=== PATIENT | male | born 1980 | race American Indian/Alaskan Native ===

== ENCOUNTER 2017-08-19 05:54 | Observation (INO) | payer OTHER ==
[2017-08-19 06:11] VITALS: BMI 33.0
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
[2017-08-19 07:14] LABS: BASO % 0.8 % (0.0-2.0); EOS # 0.1 K/uL (0.0-0.7); EOS % 2.7 % (0.0-4.0); HEMOGLOBIN 14.1 g/dL (12.0-18.0); LYMPH # 1.3 K/uL (1.0-4.3); MEAN CELL VOLUME 87.4 fl (80.0-94.0); MEAN CORPUSCULAR HEMOGLOBIN 29.7 pg (27.0-31.0); MEAN PLATELET VOLUME 8.5 fl (7.2-11.7); MONO # 0.7 K/uL (0.0-0.8); MONO % 14.1 % (0.0-10.0); NEUT # 2.8 K/uL (1.8-7.0); NEUT % 56.4 % (50.0-75.0); NRBC % 0.1 % (0.0-0.0); RBC 4.74 Mil/uL (4.40-5.90); RED CELL DISTRIBUTION WIDTH 13.4 % (11.5-14.5)
[2017-08-19 07:22] LABS: INR 1.1 (0.9-1.2); PARTIAL THROMBOPLASTIN TIME 32.5 Seconds (25.6-37.1); PROTHROMBIN TIME 12.4 Seconds (9.8-13.1)
[2017-08-19 07:25] LABS: ALB/GLOB RATIO 1.4 (1.0-2.1); ALBUMIN 4.6 g/dL (3.5-5.0); ALT/SGPT 43 U/L (21-72); AST/SGOT 32 U/L (17-59); BLOOD UREA NITROGEN 14 mg/dl (9-20); CALCIUM 9.1 mg/dL (8.4-10.2); GFR AFRICAN-AMERICAN > 60; GFR NON-AFRICAN AMERICAN > 60
[2017-08-19] MEDS ORDERED: Propofol 10 mg/ml Inj (20 ML) ONE ×2 (08:00→08:04)
[2017-08-19] MEDS ORDERED: Midazolam 2 MG/2 ML VIAL ONE (08:00)
[2017-08-19] MEDS ORDERED: Bupivacaine 0.5% Inj(30mL) ONE ×2 (08:05→09:49)
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
[2017-08-19 08:17] VITALS: RESP 18
[2017-08-19] MEDS ORDERED: Lactated Ringer's 1,000 ML IV ONE (08:47)
[2017-08-19] MEDS ORDERED: Dexamethasone 4 mg/1 ml ONE (09:26)
[2017-08-19] MEDS ORDERED: ePHEDrine 50 mg/ml Inj ONE (09:31)
[2017-08-19] MEDS ORDERED: Bupivacaine 0.5% 50 ML IJ ONE (09:50)
[2017-08-19] MEDS ORDERED: Ropivacaine 0.5% 30ML IV ONE (09:51)
--- NOTE | 2017-08-19 10:05 | PCM.SURG1 ---
Surgeon's Initial Post Op Note - Surgeon's Notes Surgeon: Dr. Scherer [employer]ade Games Mechanic: Dr. Leija PGY-2 Type of Anesthesia: IV Sedation, Local Anesthesia Administered By: Dr. Kim Pre-Operative Diagnosis: right arm biceps tendon rupture Operative Findings: see dictation Post-Operative Diagnosis: same Operation Performed: right arm biceps tendon repair Specimen/Specimens Removed: none Estimated Blood Loss: EBL {In ML}: 10 Blood Products Given: N/A Drains Used: No Drains Post-Op Condition: Good Date of Surgery/Procedure: 08/19/17 Time of Surgery/Procedure: 10:05
[2017-08-19] MEDS ORDERED: HYDROmorphone 0.5 mg/0.5 ml ISec IVP PRN (10:26)
--- NOTE | 2017-08-19 10:26 | PCM.ANESB1 ---
Interscalene Block - Brachial Plexus Date of Procedure: 08/19/17 Anesthesiologist: Julio Pre-Procedure Diagnosis: Right torn biceps Post-Procedure Diagnosis: Same Procedure Performed: Interscalene Block of Brachial Plexus Right - Procedure Interscalene Block of Brachial Plexus: This procedure was explained to the patient that it is for post-operative pain management. Consent was obtained after a thorough discussion with the patient regarding the benefits and possible complications of local anesthetic block of the Brachial Plexus at the Interscalene area. At the end of the surgery, patient was extubated. Time out was held with the circulating nurse to confirm the correct surgery and appropriate block. After applying Oxygen by nasal cannula and administering IV Sedation, the patient's head was gently rotated away from the __right____operative shoulder and the anterior scalene groove was carefully palpated. The ultrasound transducer was then applied to the skin in the transverse plane and the brachial plexus was visualized lateral to the carotid artery and in between the anterior and middle scalene muscles. After identification,the anterior lateral portion of the neck was prepped with Betadine solution three times and Lidocaine 1% was injected subcutaneously for topical analgesia. At this point, a # 22 gauge Stimuplex 2 inches insulated needle was inserted into the interscalene groove and directed in a caudal and midline direction. The needle was inserted lateral to the ultrasound transducer in-plane towards the brachial plexus in a [id number] direction. Needle advancement was performed carefully under direct ultrasound visualization. Nerve stimulator was used and twitched of the affected extremity including the hand brachialis muscles, biceps and the deltoid was obtained at a current of __0.4___MA. After repeated negative aspiration,__30___cc of__.5%___,____Ropivacaine were injected. Under ultrasound guidance the local anesthetics were observed surrounding the roots of the brachial plexus. The needle was removed intact and sterile dressing was applied. The patient had stable vital signs, was conscious and in no apparent distress. The patient tolerated the interscalene block of the bracheal plexus well with stable vital signs and was transfered to PACU.
--- NOTE | 2017-08-19 11:52 | RAD ---
HISTORY: Preop. COMPARISON: No prior. FINDINGS: LUNGS: No active pulmonary disease. PLEURA: No significant pleural effusion identified, no pneumothorax apparent. CARDIOVASCULAR: No radiographic findings to suggest acute or significant cardiovascular disease. OSSEOUS STRUCTURES: No significant abnormalities. VISUALIZED UPPER ABDOMEN: Normal. OTHER FINDINGS: None. IMPRESSION: No active disease.
[2017-08-19 13:24] VITALS: O2SAT 97
[2017-08-19 14:04] VITALS: BP 142/78; PULSE 88; TEMP 97.8
--- NOTE | 2017-08-19 17:07 | CARD ---
APPROVED REPORT EKG Measurement Heart [id number] MT [id number] <Conclusion> Normal sinus rhythm Left ventricular hypertrophy with repolarization abnormality Abnormal ECG
--- NOTE | 2017-08-19 17:11 | CARD ---
APPROVED REPORT EKG Measurement Heart [id number] NM [id number] <Conclusion> Normal sinus rhythm ST & T wave abnormality, consider inferolateral ischemia Prolonged QT Abnormal ECG
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
--- NOTE | 2017-08-20 08:34 | OP ---
PROCEDURE DATE: 08/19/2017 SURGEON: Daniel Scherer MD [employer]: Tammy Mueller MD PREOPERATIVE DIAGNOSIS: Displaced right distal biceps tear. POSTOPERATIVE DIAGNOSIS: Displaced right distal biceps tear. PROCEDURES: 1. Right distal biceps tendon reinsertion using Arthrex tension slide Button technique, [id number]. 2. Right elbow long arm cast, [id number]. ESTIMATED BLOOD LOSS: Minimal. TYPE OF ANESTHESIA: General and postoperative right upper extremity block. SPECIMENS: None. COMPLICATIONS: None. OPERATIVE FINDINGS: A full-thickness distal biceps tear with retraction which was amenable to anatomic repair. INDICATION: A 36-year-old right-hand dominant male, who presents to [facility] complaining of right arm pain and weakness. After being evaluated in the Emergency Room, the patient was taken to the operating room for elbow exploration and repair of the biceps tendon. Risks and benefits of the surgery were explained. Informed consent was obtained. DESCRIPTION OF PROCEDURE: The patient was taken to the operating room and placed supine on the operating room table. After adequate general anesthesia was provided, a well-padded non-sterile tourniquet was placed on the patient's right upper extremity. Right upper extremity was then prepped and draped in standard surgical fashion. The proposed incision was marked out with a sterile marking pen. This was a horizontal incision over the radial tuberosity on the anterior forearm. Incision was approximately 5 cm in length. Esmarch bandage was used to exsanguinate the ligament. The tourniquet was inflated to 250 mmHg and the Esmarch bandage was removed. An incision was made and also superficial veins were cauterized immediately, isolation, identification and protection of the lateral antebrachial cutaneous nerve was performed. Gentle dissection was carried proximally to identify the distal biceps tendon, which was retracted into the upper arm. A clamp was placed at the bulbous distal end and it was brought out through the wound. The muscle belly was freed of its superficial and deep surface as well as medial and lateral surface to improve its excursion. The tendon was prepared. The tendon was debrided by using #10 scalpel. It was until healthy tendon was seen, #2 FiberWire loop was used to place a whip stitch along the distal 2.5 cm of the tendon. A marking pen marked the distal 1 cm of the tendon. The tendon was measured and 8 mm size . Next, attention was turned towards identifying the radial tuberosity. The arm was kept fully supinated and dissection was carried down to the radial tuberosity. The radial recurrent vessels were ligated. Both small tendon fibers were then seen at the radial tuberosity. Care was taken to protect the radial nerve at all times. Next, biceps button 3.2 mm passing pin was placed bicortically on the ulnar aspect of the radial tuberosity. The medial cortex was . All bone debris was immediately removed and suctioned and irrigated. Next, the threads of the FiberLoop were grasped with biceps button and it was placed and the button inserted. While holding the arm fully supinated, the button was placed through the radius and deployed. Using tension slide technique, the tendon was into the trough. The tendon was inserted greater than 1 cm into the tuberosity, and then using a free needle, one suture was passed through the distal tendon. It was then secured through the remaining suture. Radiographs confirmed excellent placement of the button and drill holes. Next, repair was then seen and obtained with minimal tension with the arm in 45 to 60 degrees. There was tension with extension to 30 degrees. The tourniquet was deflated. Hemostasis was obtained using bipolar cautery. The skin was closed with interrupted 2-0 Vicryl followed by 3-0 Monocryl subcuticular stitch. Steri-Strips were placed followed by fluffs and 4 x 4s. The long-arm plaster cast was then placed within the elbow at 45 degrees flexion and neutral rotation. The patient tolerated the procedure well and was brought to recovery room awake, alert and in excellent condition. Dr. Tammy Mueller is a board certified Orthopedic surgeon who assisted me throughout the case. His assistance was needed for proper patient position and protecting vertical neurovascular bundle and final implant placement. His fleet assistant provided intraoperative safety for the patient. Daniel Scherer MD
== END 2017-08-19 14:00 | disposition home or self-care (01) ==
LOC: H.ER 05:54 → H.ERHOLD 07:38
PROVIDERS: ADMIT Internal Medicine; ATTEND Internal Medicine
DX: S46.211A Strain of muscle, fascia and tendon of other parts of biceps, right arm, initial encounter (principal); I10 Essential (primary) hypertension; Y04.2XXA Assault by strike against or bumped into by another person, initial encounter; Y93.9 Activity, unspecified; Y92.9 Unspecified place or not applicable
CPT/HCPCS: 24342; 71045; 80053; 82948; 85025; 85610; 85730; 93005; 99283; G0378; J0690; J1100; J2001; J2250; J2704; J3010; J7030; J7120